=== PATIENT | male | born 1955 ===

== ENCOUNTER 2023-04-29 06:10 | Day surgery (SDC) | payer OTHER ==
[~2023-04-29] VITALS: Ht 160 cm; Wt 88.9 kg
[~2023-04-29 06:10] MED LIST: CARVEDILOL12.5 MG; GABAPENTIN400 MG PO; GLIPIZIDE XL10 MG PO; HUMALOG100 UNIT/1 PO; LASIX40 MG PO; LIPITOR40 MG PO; PLAVIX75 MG PO; VASOTEC5 MG PO
== END 2023-04-30 | disposition home or self-care (01) ==
LOC: CIR.AMB 06:10
PROVIDERS: ATTEND Orthopaedic Surgery Hand Surgery
DX: S42.462A Displaced fracture of medial condyle of left humerus, initial encounter for closed fracture (principal); S42.452A Displaced fracture of lateral condyle of left humerus, initial encounter for closed fracture; Z20.822 Contact with and (suspected) exposure to COVID-19; Z88.0 Allergy status to penicillin
CPT/HCPCS: 24546; L8699